=== PATIENT | male | born 1960 | race Caucasian/White ===

== ENCOUNTER 2023-10-22 06:28 | Day surgery (SDC) | payer OTHER, SELFPAY ==
[2023-10-07 08:48] LABS: Hematocrit 40.7 % (39.0-52.0); Hemoglobin 13.5 g/dL (13.0-18.0); Mean Corp Hgb Conc. 33.2 g/dL (33.0-37.0); Mean Corpuscular Volume 84.4 fL (80.0-94.0); Mean Platelet Volume 11.9 fL (7.4-10.4); Platelet Count 208 10^3/uL (130-400); Red Blood Cell Count 4.82 10^6/uL (4.70-6.10); Red Cell Dist. Width 12.9 % (11.5-14.5); White Blood Cell Count 5.6 10^3/uL (4.8-10.8)
[2023-10-07 09:16] LABS: Blood Urea Nitrogen 23 mg/dl (9-20); Calcium 9.4 mg/dl (8.4-10.2); Carbon Dioxide 28 mmol/L (22-30); Chloride 101 mmol/L (98-107); Glucose 98 mg/dl (70-99); Potassium 4.6 mmol/L (3.5-5.1); Sodium 138 mmol/L (135-145); eGFR > 60.00
[2023-10-07 11:29] VITALS: BMI 28.3
[2023-10-22] VITALS (13 sets, daily range): BP systolic 81–142; BP diastolic 48–78; BMI 28.3
[2023-10-22] MEDS: NORMOSOL-R 1000 IV (11:06)
[2023-10-22] MEDS: TYLENOL 1000 MG PO (11:06)
[2023-10-22] MEDS: DILAUDID 0.5 MG IV (15:30)
[2023-10-22] MEDS: ZOFRAN 4 MG IV (17:15)
== END 2023-10-22 17:57 | disposition home or self-care (01) ==
LOC: SDS 06:28
PROVIDERS: ATTENDING PHYSICIAN Surgery; FAMILY PHYSICIAN Physician Assistant
DX: K42.9 Umbilical hernia without obstruction or gangrene (principal)
CPT/HCPCS: 49593; 36415; 80048; 85027; 93005; C1781